=== PATIENT | male | born 1935 | race Caucasian/White ===

== ENCOUNTER 2023-04-08 14:31 | Day surgery (SDC) | payer MEDICARE, OTHER ==
--- NOTE | 2023-04-08 19:24 | XRAY ---
Indication: Bilateral SI joint injection. Intraoperative fluoroscopy provided for 19 seconds. 6 digital spot image submitted for interpretation demonstrates posterior needle tip projecting over left and right SI joint. Correlate with intraoperative findings/report.
--- NOTE | 2023-04-09 08:59 | XRAY ---
19 seconds of fluoroscopy was used in surgery for a bilateral sacroiliac joint injection.
== END 2023-04-08 17:34 | disposition home or self-care (01) ==
LOC: SDC-PAIN 14:31
PROVIDERS: ATTEND Psychiatry & Neurology Pain Medicine
DX: M46.1 Sacroiliitis, not elsewhere classified (principal); E11.9 Type 2 diabetes mellitus without complications; Z79.899 Other long term (current) drug therapy
CPT/HCPCS: 27096; 72202; 77002; 82947; G0260; Q9966

== ENCOUNTER 2023-08-19 07:20 | Day surgery (SDC) | payer MEDICARE ==
[2023-08-19] MEDS ORDERED: LIDOCAINE HCL 2% 100 MG/5 ML IJ ONE (07:21)
[2023-08-19] MEDS ORDERED: Depo-Medrol 40 MG/ML IM ONE (07:21)
[2023-08-19] MEDS ORDERED: DIPRIVAN 200 MG/20 ML IV ONE (08:50)
[2023-08-19] MEDS ORDERED: Lactated Ringers 1,000 ML IV ONE (09:21)
--- NOTE | 2023-08-19 10:28 | XRAY ---
Indication: Bilateral L4-S1 MBB. Intraoperative fluoroscopy provided for 14 seconds. Single digital spot image submitted for interpretation demonstrates posterior needle tips projecting over the expected left and right L4-S1 nerve roots. Correlate with intraoperative findings/report.
--- NOTE | 2023-08-19 12:38 | XRAY ---
14 seconds of fluoroscopy was used in surgery for a bilateral L4-S1 MBB.
== END 2023-08-19 09:16 | disposition home or self-care (01) ==
LOC: SDC-PAIN 07:20
PROVIDERS: ATTEND Psychiatry & Neurology Pain Medicine
DX: M47.816 Spondylosis without myelopathy or radiculopathy, lumbar region (principal); E11.9 Type 2 diabetes mellitus without complications
CPT/HCPCS: 64493; 64494; 72020; 77002; 82947; J1010; J2704

== ENCOUNTER 2023-10-21 06:46 | Day surgery (SDC) | payer MEDICARE ==
[2023-10-21] MEDS ORDERED: Depo-Medrol 40 MG/ML IM ONE (06:47)
[2023-10-21] MEDS ORDERED: BUPIVACAINE 0.5% VIAL IJ ONE (06:47)
[2023-10-21] MEDS ORDERED: DIPRIVAN 200 MG/20 ML IV ONE (08:43)
[2023-10-21] MEDS ORDERED: Lactated Ringers 1,000 ML IV ONE (08:51)
--- NOTE | 2023-10-21 09:41 | XRAY ---
Indication: Bilateral L4-S1 MBB. Intraoperative fluoroscopy provided for 11 seconds. Single digital spot image submitted for interpretation demonstrates posterior needle tips projecting over the expected left and right L4-S1 nerve roots. Correlate with intraoperative findings/report.
--- NOTE | 2023-10-21 13:24 | XRAY ---
11 seconds of fluoroscopy was used in surgery for a bilateral L4-S1 MBB.
== END 2023-10-21 09:15 | disposition home or self-care (01) ==
LOC: SDC-PAIN 06:46
PROVIDERS: ATTEND Psychiatry & Neurology Pain Medicine
DX: M47.816 Spondylosis without myelopathy or radiculopathy, lumbar region (principal); E11.9 Type 2 diabetes mellitus without complications
CPT/HCPCS: 64493; 64494; 72020; 77002; 82947; J1010; J2704

== ENCOUNTER 2023-12-02 07:09 | Day surgery (SDC) | payer MEDICARE ==
[2023-12-02] MEDS ORDERED: BUPIVACAINE 0.5% VIAL IJ ONE (07:10)
[2023-12-02] MEDS ORDERED: Depo-Medrol 40 MG/ML IM ONE (07:10)
[2023-12-02] MEDS ORDERED: LIDOCAINE HCL 1% 50 MG/5 ML VL PF IJ ONE (07:10)
[2023-12-02] MEDS ORDERED: DIPRIVAN 200 MG/20 ML IV ONE (08:40)
[2023-12-02] MEDS ORDERED: Lactated Ringers 1,000 ML IV ONE (09:17)
--- NOTE | 2023-12-02 10:55 | XRAY ---
Indication: Right L4-S1 RFA. Intraoperative fluoroscopy provided for 27 seconds. 3 digital spot images submitted for interpretation demonstrates posterior needle tips projecting over the expected right L4-S1 nerve roots. Correlate with intraoperative findings/report.
--- NOTE | 2023-12-02 11:37 | XRAY ---
27 seconds of fluoroscopy was used in surgery for a right L4-S1 RFA.
== END 2023-12-02 09:17 ==
LOC: SDC-PAIN 07:09
PROVIDERS: ATTEND Psychiatry & Neurology Pain Medicine
DX: M47.816 Spondylosis without myelopathy or radiculopathy, lumbar region (principal); E11.9 Type 2 diabetes mellitus without complications
CPT/HCPCS: 64635; 64636; 72100; 77002; 82947; 99100; J2001; J2704

== ENCOUNTER 2023-12-16 07:21 | Day surgery (SDC) | payer MEDICARE ==
[2023-12-16] MEDS ORDERED: BUPIVACAINE 0.5% VIAL IJ ONE (07:22)
[2023-12-16] MEDS ORDERED: LIDOCAINE HCL 1% 50 MG/5 ML VL PF IJ ONE (07:22)
[2023-12-16] MEDS ORDERED: Depo-Medrol 40 MG/ML IM ONE (07:22)
[2023-12-16] MEDS ORDERED: DIPRIVAN 200 MG/20 ML IV ONE (09:07)
[2023-12-16] MEDS ORDERED: Lactated Ringers 1,000 ML IV ONE (09:29)
--- NOTE | 2023-12-16 11:48 | XRAY ---
Indication: Left L4-S1 RFA. Intraoperative fluoroscopy provided for 24 seconds. 3 digital spot images submitted for interpretation demonstrates posterior needle tips projecting over the expected left L4-S1 nerve roots. Correlate with intraoperative findings/report.
--- NOTE | 2023-12-16 12:06 | XRAY ---
24 seconds of fluoroscopy was used in surgery for a left L4-S1 RFA.
== END 2023-12-16 09:37 ==
LOC: SDC-PAIN 07:21
PROVIDERS: ATTEND Psychiatry & Neurology Pain Medicine
DX: M47.816 Spondylosis without myelopathy or radiculopathy, lumbar region (principal); E11.9 Type 2 diabetes mellitus without complications
CPT/HCPCS: 64635; 64636; 72100; 77002; 82947; 99100; J2001; J2704